=== PATIENT | male | born 1990 | race African-American/Black ===

== ENCOUNTER 2016-05-28 10:29 | Emergency (ER) | payer SELFPAY ==
[2016-05-28] MEDS ORDERED: KETOROLAC 30 MG/ML VIAL (J1885) As Ordered ONE (11:10)
[2016-05-28] MEDS ORDERED: ONDANSETRON 4MG/2ML VIAL (J2405) As Ordered ONE (11:10)
[2016-05-28 11:39] LABS: BASO % 1.9 % (0.0-1.0); EOS % 1.1 % (0.0-3.0); LARGE UNSTAINED CELL # 0.1 K/mm3 (0.0-0.4); LARGE UNSTAINED CELL % 3.6 % (0.0-4.0); LYMPH # 0.8 K/mm3 (1.5-6.5); LYMPH % 26.8 % (24.0-44.0); MEAN CORPUSCULAR HEMOGLOBIN 31.5 pg (27.0-33.0); MEAN CORPUSCULAR HGB CONC 33.7 g/dl (32.0-36.5); MEAN CORPUSCULAR VOLUME 93.4 fl (80.0-96.0); MONO # 0.2 K/mm3 (0.0-0.8); MONO % 7.2 % (0.0-5.0); NEUTROPHILS # 1.6 K/mm3 (1.8-7.7); NEUTROPHILS % 59.5 % (36.0-66.0); RED CELL DISTRIBUTION WIDTH 13.4 % (11.5-14.5); WHITE BLOOD COUNT 2.6 K/mm3 (4.0-10.0)
[2016-05-28 12:02] LABS: ALBUMIN 3.9 GM/DL (3.2-5.2); ALBUMIN/GLOBULIN RATIO 0.98 (1.00-1.93); ALKALINE PHOSPHATASE 63 U/L (45-117); ALT/SGPT 21 U/L (12-78); ANION GAP 7 MEQ/L (8-16); AST/SGOT 33 U/L (15-37); BILIRUBIN,DIRECT < 0.1 MG/DL (0.0-0.2); BILIRUBIN,TOTAL 0.3 MG/DL (0.2-1.0); BLOOD UREA NITROGEN 20 MG/DL (7-18); CALCIUM LEVEL 8.4 MG/DL (8.5-10.1); CARBON DIOXIDE LEVEL 26 MEQ/L (21-32); CHLORIDE LEVEL 106 MEQ/L (98-107); GLOMERULAR FILTRATION RATE > 60.0 (>60); GLUCOSE, FASTING 87 MG/DL (70-105); POTASSIUM SERUM 4.1 MEQ/L (3.5-5.1); SODIUM LEVEL 139 MEQ/L (136-145); TOTAL PROTEIN 7.9 GM/DL (6.4-8.2)
[2016-05-28 12:15] LABS: PLATELET COUNT, AUTOMATED 92 k/mm3 (150-450)
--- NOTE | 2016-05-28 13:03 | EDDOCDS ---
Physician Documentation [facility] Name: Jm Khalil Age: 25 yrs Sex: Male : 1990 Arrival Date: 05/28/2016 Time: 10:29 Bed I5 / M5 Private MD: No Pcp Disposition: 05/28/16 12:43 Discharged to Home/Self Care. Impression: Nausea with vomiting, unspecified, Chills (without fever). - Condition is Stable. - Discharge Instructions: Nausea and Vomiting. - Prescriptions for ZOFRAN ODT 4 mg - dissolve 1 tablet by ORAL route 4 times per day As needed do not chew, do not swallow whole; 10 tablet. - Medication Reconciliation, Local Pharmacy Hours, Work Release Form - 2 day form. - Follow up: Emergency Department; When: As needed; Reason: Worsening of conditions. [facility]; When: Call to arrange an appointment; Reason: Recheck today's complaints, Continuance of care, To establish care. - Problem is new. - Symptoms have improved. Historical: - Allergies: Celexa (Rash); - Home Meds: 1. Mucinex 600 mg oral Ta12 (Last dose: 05/27/2016) - PMHx: none; - PSHx: none; - Social history: Smoking status: Patient uses tobacco products, current every day smoker. No barriers to communication noted, The patient speaks fluent Kyrgyz. - Family history: Not pertinent. - : The pt / caregiver states he / she is not on anticoagulants. Home medication list is obtained from the patient. - Exposure Risk Screening:: None identified. Vital Signs: 05/28 10:31 BP 117 / 73; Pulse 98; Resp 16; Temp 97.5(O); Pulse Ox 97% on R/A; Weight 65.77 kg / elp 145 lbs (R); Height 5 ft. 7 in. (170.18 cm) (R); Pain 4/10; 12:35 BP 129 / 70 LA Supine (auto/reg); Pulse 70; Resp 20; Temp 97.9(O); Pulse Ox 98% on R/A; bnb Pain 2/10; 10:31 Body Mass Index 22.71 (65.77 kg, 170.18 cm) elp MDM: 10:57 NS 0.9% 1000 ml IV at bolus once ordered. dt4 10:57 Ondansetron 4 mg IVP once ordered. dt4 10:57 ketorolac 30 mg IVP once ordered. dt4 10:57 IV Saline Lock ordered. dt4 10:57 Strep Screen, Nursing ordered. dt4 10:57 Basic Metabolic Profile Ordered. EDMS 10:57 CBC with Diff Ordered. EDMS 10:57 Lipase Ordered. EDMS 10:57 Liver Profile Ordered. EDMS 10:57 Urinalysis Ordered. EDMS 11:08 GATS (NEGATIVE STREP SCREEN) Ordered. EDMS 12:03 Financial registration complete. lg 12:17 [facility] Payment Agreement was scanned into [employer] and attached to record. lg Administered Medications: 11:23 Drug: NS 0.9% 1000 ml [sodium chloride 0.9 % intravenous solution] Route: IV; Rate: ttb bolus; Site: left antecubital; 13:01 Follow up: Response: Nausea is resolved; No Adverse Reaction; Pain is decreased; IV ttb Status: Completed infusion; IV Intake: 1000ml 11:23 Drug: Ondansetron 4 mg [ondansetron HCl 2 mg/mL intravenous solution (2 mL)] Route: ttb IVP; Site: left antecubital; 11:23 Drug: ketorolac 30 mg [ketorolac 30 mg/mL (1 mL) injection solution (1 mL)] Route: IVP; ttb Site: left antecubital; Signatures: [facility] Danae Mayen, Rey Reg lg Yamileth De La Torre RN RN jjr Conner, Teresa, RN RN ttb Myrna Montes De Oca PA-C PA-C dt4 The chart was reviewed and I authenticate all verbal orders and agree with the evaluation and treatment provided.Attachments: 12:17 [facility] Payment Agreement lg MTDD
--- NOTE | 2016-05-28 13:04 | EDDOCDS ---
Nurse's Notes [facility] Name: Jm Khalil Age: 25 yrs Sex: Male : 1990 Arrival Date: 05/28/2016 Time: 10:29 Bed I5 / M5 Private MD: No Pcp Diagnosis: Nausea with vomiting, unspecified;Chills (without fever) Presentation: 05/28 10:33 Presenting complaint: Patient states: N/V for 3 days with chills, reports body aches. jjr Adult Sepsis Screening: The patient does not have new or worsening altered mentation. Patient's respiratory rate is less than 22. Systolic blood pressure is greater than 100. Patient has a qSOFA score of 0- Negative Sepsis Screen. Suicide/Homicide risk assessment- the patient denies having any suicidal and/or homicidal ideations and does not present with any other emotional, behavioral or mental health complaints. Status: Patient is not a service sprinkler helper or dependent. Transition of care: patient was not received from another setting of care. 10:33 Acuity: ALEE Level 3 jjr 10:33 Method Of Arrival: Walkin/Carried/Asstd jjr Triage Assessment: 10:35 General: Appears in no apparent distress. Pain: Location: general malaise. HIV jjr screening NA for this visit Offered previously. GI: Reports nausea, vomiting. Historical: - Allergies: Celexa (Rash); - Home Meds: 1. Mucinex 600 mg oral Ta12 (Last dose: 05/27/2016) - PMHx: none; - PSHx: none; - Social history: Smoking status: Patient uses tobacco products, current every day smoker. No barriers to communication noted, The patient speaks fluent Luxembourgish. - Family history: Not pertinent. - : The pt / caregiver states he / she is not on anticoagulants. Home medication list is obtained from the patient. - Exposure Risk Screening:: None identified. Screenin:25 Screening information is obtained from the patient. Fall risk: No risks identified. ttb Assistance ADL's: requires no assistance with activities of daily living. Abuse/DV Screen: The patient / caregiver reports he/she is: not in a situation that causes fear, pain or injury. Nutritional screening: No deficits noted. Advance Directives: Currently, there is no health care proxy. home support is adequate. Assessment: 11:25 General: Appears in no apparent distress, well nourished, well groomed, Behavior is ttb appropriate for age, cooperative, pleasant. Pain: Location: back of neck. Neurological: Level of Consciousness is awake, alert. Cardiovascular: Heart tones S1 S2 present Chest pain is denied. Respiratory: No deficits noted. Airway is patent Respiratory effort is even, unlabored, Breath sounds are clear bilaterally. Denies cough, shortness of breath. GI: Abdomen is non- distended Bowel sounds present X 4 quads. Abd is soft and non tender X 4 quads. GI: Reports nausea, vomiting. Derm: Skin is normal. Injury Description: No known injury. 12:03 Reassessment: Patient appears in no apparent distress at this time. Patient states ttb feeling better. Patient states symptoms have improved. pt states he is feeling better and inquires about a work note. . 12:59 Reassessment: Patient appears in no apparent distress at this time. Patient denies pain ttb at this time. Patient states feeling better. Patient states symptoms have improved. pt states comfortable going home at this time. . General: Appears in no apparent distress, comfortable, Behavior is appropriate for age, cooperative, pleasant. Pain: Denies pain. Neurological: Level of Consciousness is awake, alert. Cardiovascular: Chest pain is denied. Respiratory: Airway is patent Respiratory effort is even, unlabored, Denies cough, shortness of breath. GI: Denies nausea, vomiting. Vital Signs: 10:31 BP 117 / 73; Pulse 98; Resp 16; Temp 97.5(O); Pulse Ox 97% on R/A; Weight 65.77 kg (R); elp Height 5 ft. 7 in. (170.18 cm) (R); Pain 4/10; 12:35 BP 129 / 70 LA Supine (auto/reg); Pulse 70; Resp 20; Temp 97.9(O); Pulse Ox 98% on R/A; bnb Pain 2/10; 10:31 Body Mass Index 22.71 (65.77 kg, 170.18 cm) elp Vitals: 10:31 Log In Time: May 28, 2016 at 10:30. [facility] ED Course: 10:30 Patient visited by Lacey Sterling PCA. elp 10:30 No Pcp is Private Physician. elp 10:30 Patient moved to Waiting elp 10:32 Patient moved to Pre RCE elp 10:33 Patient visited by Lacey Sterling PCA. elp 10:34 Triage Initiated jjr 10:35 Patient moved to Triage 3 jjr 10:37 Myrna Montes De Oca [facility]. dt4 10:37 Lucie Nails MD is Attending Physician. dt4 10:37 Patient visited by Myrna Montes De Oca PA-C. dt4 11:03 Urinalysis Sent. ct3 11:04 Patient moved to I5 / M5 ct3 11:10 GATS (NEGATIVE STREP SCREEN) Sent. dwg 11:22 Patient visited by Nadiya Jara RN. ttb 11:23 Basic Metabolic Profile Sent. ttb 11:23 CBC with Diff Sent. ttb 11:23 Lipase Sent. ttb 11:23 Liver Profile Sent. ttb 11:25 The patient / caregiver is instructed regarding the plan of care and ED course. Patient ttb has correct armband on for positive identification. 11:25 Inserted peripheral IV: 20gauge IV in left antecubital area and blood collected. ttb Patient tolerated the procedure well. Labs drawn. (by ED staff). Urine collected. Clean catch specimen. 11:28 Patient visited by Nadiya Jara RN. ttb 12:03 Patient visited by Nadiya Jara RN. ttb 12:04 Patient visited by Nadiya Jara RN. ttb 12:17 [facility] Payment Agreement was scanned into [employer] and attached to record. lg 12:36 Patient visited by Carmela Rust PCA. bnb 12:43 [facility] is Referral Physician. dt4 12:59 Discontinued IV lock intact, bleeding controlled, pressure dressing applied, No ttb redness/swelling at site. No procedures done that require assistance. Administered Medications: 11:23 Drug: NS 0.9% 1000 ml [sodium chloride 0.9 % intravenous solution] Route: IV; Rate: ttb bolus; Site: left antecubital; 13:01 Follow up: Response: Nausea is resolved; No Adverse Reaction; Pain is decreased; IV ttb Status: Completed infusion; IV Intake: 1000ml 11:23 Drug: Ondansetron 4 mg [ondansetron HCl 2 mg/mL intravenous solution (2 mL)] Route: ttb IVP; Site: left antecubital; 11:23 Drug: ketorolac 30 mg [ketorolac 30 mg/mL (1 mL) injection solution (1 mL)] Route: IVP; ttb Site: left antecubital; Intake: 13:01 IV: 1000.00ml; Total: 1000.00ml. ttb Order Results: Lab Order: Basic Metabolic Profile; SPEC'M 05/28/16 11:00 Test: GLUCOSE, FASTING; Value: 87; Range: 70-105; Units: MG/DL; Status: F Test: BLOOD UREA NITROGEN; Value: 20; Range: 7-18; Abnormal: Above high normal; Units: MG/DL; Status: F Test: CREATININE FOR GFR; Value: 1.30; Range: 0.70-1.30; Units: MG/DL; Status: F Test: GLOMERULAR FILTRATION RATE; Value: > 60.0; Range: >60; Status: F Test: SODIUM LEVEL; Value: 139; Range: 136-145; Units: MEQ/L; Status: F Test: POTASSIUM SERUM; Value: 4.1; Range: 3.5-5.1; Units: MEQ/L; Status: F Test: CHLORIDE LEVEL; Value: 106; Range: 98-107; Units: MEQ/L; Status: F Test: CARBON DIOXIDE LEVEL; Value: 26; Range: 21-32; Units: MEQ/L; Status: F Test: ANION GAP; Value: 7; Range: 8-16; Abnormal: Below low normal; Units: MEQ/L; Status: F Test: CALCIUM LEVEL; Value: 8.4; Range: 8.5-10.1; Abnormal: Below low normal; Units: MG/DL; Status: F Test Note: ; Units are mL/min/1.73 m2 Chronic Kidney Disease Staging per NKF: Stage I & II GFR >=60 Normal to Mildly Decreased Stage III GFR 30-59 Moderately Decreased Stage IV GFR 15-29 Severely Decreased Stage V GFR <15 Very Little GFR Left ESRD GFR <15 on 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0-36.5; Units: g/dl; Status: F Test: RED CELL DISTRIBUTION WIDTH; Value: 13.4; Range: 11.5-14.5; Units: %; Status: F Test: PLATELET COUNT, AUTOMATED; Value: 92; Range: 150-450; Abnormal: Below low normal; Units: k/mm3; Status: F Test: NEUTROPHILS %; Value: 59.5; Range: 36.0-66.0; Units: %; Status: F Test: LYMPH %; Value: 26.8; Range: 24.0-44.0; Units: %; Status: F Test: MONO %; Value: 7.2; Range: 0.0-5.0; Abnormal: Above high normal; Units: %; Status: F Test: EOS %; Value: 1.1; Range: 0.0-3.0; Units: %; Status: F Test: BASO %; Value: 1.9; Range: 0.0-1.0; Abnormal: Above high normal; Units: %; Status: F Test: LARGE UNSTAINED CELL %; Value: 3.6; Range: 0.0-4.0; Units: %; Status: F Test: NEUTROPHILS #; Value: 1.6; Range: 1.8-7.7; Abnormal: Below low normal; Units: K/mm3; Status: F Test: LYMPH #; Value: 0.8; Range: 1.5-6.5; Abnormal: Below low normal; Units: K/mm3; Status: F Test: MONO #; Value: 0.2; Range: 0.0-0.8; Units: K/mm3; Status: F Test: EOS #; Value: 0.0; Range: 0.0-0.50; Units: K/mm3; Status: F Test: BASO #; Value: 0.0; Range: 0.0-0.2; Units: K/mm3; Status: F Test: LARGE UNSTAINED CELL #; Value: 0.1; Range: 0.0-0.4; Units: K/mm3; Status: F Lab Order: Lipase; SPEC' 05/28/16 11:00 Test: LIPASE; Value: 129; Range: 73-393; Units: U/L; Status: F Lab Order: Liver Profile; [facility]' 05/28/16 11:00 Test: AST/SGOT; Value: 33; Range: 15-37; Units: U/L; Status: F Test: ALT/SGPT; Value: 21; Range: 12-78; Units: U/L; Status: F Test: ALKALINE PHOSPHATASE; Value: 63; Range: 45-117; Units: U/L; Status: F Test: BILIRUBIN,TOTAL; Value: 0.3; Range: 0.2-1.0; Units: MG/DL; Status: F Test: BILIRUBIN,DIRECT; Value: < 0.1; Range: 0.0-0.2; Units: MG/DL; Status: F Test: TOTAL PROTEIN; Value: 7.9; Range: 6.4-8.2; Units: GM/DL; Status: F Test: ALBUMIN; Value: 3.9; Range: 3.2-5.2; Units: GM/DL; Status: F Test: ALBUMIN/GLOBULIN RATIO; Value: 0.98; Range: 1.00-1.93; Abnormal: Below low normal; Status: F Lab Order: Urinalysis; [facility]' 05/28/16 11:03 Test: APPEARANCE, URINE; Value: HAZY; Range: CLEAR; Status: F Test: COLOR, URINE; Value: MAY; Range: YELLOW; Status: F Test: PH,URINE; Value: 6.0; Range: 5.0-9.0; Units: UNITS; Status: F Test: SPECIFIC GRAVITY URINE AUTO; Value: 1.031; Range: 1.002-1.035; Status: F Test: PROTEIN, URINE AUTO; Value: 1+; Range: NEGATIVE; Abnormal: Above high normal; Units: mg/dL; Status: F Test: GLUCOSE, URINE (UA) AUTO; Value: NEGATIVE; Range: NEGATIVE; Units: mg/dL; Status: F Test: KETONE, URINE AUTO; Value: TRACE; Range: NEGATIVE; Abnormal: Above high normal; Units: mg/dL; Status: F Test: UROBILINOGEN, URINE AUTO; Value: 4.0; Range: 0.0-2.0; Abnormal: Above high normal; Units: mg/dL; Status: F Test: BILIRUBIN, URINE AUTO; Value: NEGATIVE; Range: NEGATIVE; Status: F Test: NITRITE, URINE AUTO; Value: NEGATIVE; Range: NEGATIVE; Status: F Test: LEUKOCYTE ESTERASE, URINE AUTO; Value: TRACE; Range: NEGATIVE; Abnormal: Above high normal; Status: F Test: BLOOD, URINE BLOOD; Value: NEGATIVE; Range: NEGATIVE; Status: F Test: WBC, URINE AUTO; Value: 5; Range: 0-3; Abnormal: Above high normal; Units: /HPF; Status: F Test: RBC, URINE AUTO; Value: 1; Range: 0-3; Units: /HPF; Status: F Test: BACTERIA, URINE AUTO; Value: NEGATIVE; Range: NEGATIVE; Status: F Test: SQUAMOUS EPITHELIAL CELL UR AU; Value: 0; Range: 0-6; Units: /HPF; Status: F Test: MUCUS, URINE; Value: SMALL; Range: NEGATIVE; Status: F Test: HYALINE CAST, URINE AUTO; Value: 0; Range: 0-1; Units: /LPF; Status: F Outcome: 12:43 Discharge ordered by Provider. dt4 12:59 Discharge Assessment: Patient awake, alert and oriented x 3. No cognitive and/or ttb functional deficits noted. Patient verbalized understanding of disposition instructions. Patient awake and alert. patient administered narcotics - no. The following High Risk Discharge criteria are identified: None. Discharged to home ambulatory. Condition: good Condition: stable Condition: improved. Discharge instructions given to patient, Instructed on discharge instructions, follow up and referral plans. medication usage, Demonstrated understanding of instructions, medications, Pt was receptive of discharge instructions/ teaching. Prescriptions given X 1. No special radiology studies were completed. Property :Personal belongings accompany Pt. 13:02 Patient left the ED. ttb Signatures: Aristides Morrissey, RN RN Danae Martines, Reg Reg lg Yamileth De La Torre, RN RN Sophy Ibarra, DIRECTOR OF STRATEGIC ALLIANCES DIRECTOR OF STRATEGIC ALLIANCES ct3 Nadiya Jara RN RN ttb Lacey Sterling, DIRECTOR OF STRATEGIC ALLIANCES DIRECTOR OF STRATEGIC ALLIANCES elp Myrna Montes De Oca PAJanet PATanviC dt4 Carmela Rust, DIRECTOR OF STRATEGIC ALLIANCES DIRECTOR OF STRATEGIC ALLIANCES bnb Corrections: (The following items were deleted from the chart) 10:33 10:31 65.77 kg; Height 5 ft. 7 in.; BMI: 22.7; Pain 4/10; elp elp MTDD
--- NOTE | 2016-05-30 14:03 | EDDOCDS ---
Physician Documentation [facility] Name: Jm Khalil Age: 25 yrs Sex: Male : 1990 Arrival Date: 05/28/2016 Time: 10:29 Bed I5 / M5 Private MD: No Pcp Disposition: 05/28/16 12:43 Discharged to Home/Self Care. Impression: Nausea with vomiting, unspecified, Chills (without fever). - Condition is Stable. - Discharge Instructions: Nausea and Vomiting. - Prescriptions for ZOFRAN ODT 4 mg - dissolve 1 tablet by ORAL route 4 times per day As needed do not chew, do not swallow whole; 10 tablet. - Medication Reconciliation, Local Pharmacy Hours, Work Release Form - 2 day form. - Follow up: Emergency Department; When: As needed; Reason: Worsening of conditions. Follow [facility]: [facility]; When: Call to arrange an appointment; Reason: Recheck today's complaints, Continuance of care, To establish care. - Problem is new. - Symptoms have improved. Historical: - Allergies: Celexa (Rash); - Home Meds: 1. Mucinex 600 mg oral Ta12 (Last dose: 05/27/2016) - PMHx: none; - PSHx: none; - Social history: Smoking status: Patient uses tobacco products, current every day smoker. No barriers to communication noted, The patient speaks fluent Indonesian. - Family history: Not pertinent. - : The pt / caregiver states he / she is not on anticoagulants. Home medication list is obtained from the patient. - Exposure Risk Screening:: None identified. Vital Signs: 05/28 10:31 BP 117 / 73; Pulse 98; Resp 16; Temp 97.5(O); Pulse Ox 97% on R/A; Weight 65.77 kg / elp 145 lbs (R); Height 5 ft. 7 in. (170.18 cm) (R); Pain 4/10; 12:35 BP 129 / 70 LA Supine (auto/reg); Pulse 70; Resp 20; Temp 97.9(O); Pulse Ox 98% on R/A; bnb Pain 2/10; 10:31 Body Mass Index 22.71 (65.77 kg, 170.18 cm) elp MDM: 10:57 NS 0.9% 1000 ml IV at bolus once ordered. dt4 10:57 Ondansetron 4 mg IVP once ordered. dt4 10:57 ketorolac 30 mg IVP once ordered. dt4 10:57 IV Saline Lock ordered. dt4 10:57 Strep Screen, Nursing ordered. dt4 10:57 Basic Metabolic Profile Ordered. EDMS 10:57 CBC with Diff Ordered. EDMS 10:57 Lipase Ordered. EDMS 10:57 Liver Profile Ordered. EDMS 10:57 Urinalysis Ordered. EDMS 11:08 GATS (NEGATIVE STREP SCREEN) Ordered. EDMS 12:03 Financial registration complete. lg 12:17 [facility] Payment Agreement was scanned into [employer] and attached to record. lg 17:06 T-Sheet-- Draft Copy was scanned into [employer] and attached to record. klr Administered Medications: 11:23 Drug: NS 0.9% 1000 ml [sodium chloride 0.9 % intravenous solution] Route: IV; Rate: ttb bolus; Site: left antecubital; 13:01 Follow up: Response: Nausea is resolved; No Adverse Reaction; Pain is decreased; IV ttb Status: Completed infusion; IV Intake: 1000ml 11:23 Drug: Ondansetron 4 mg [ondansetron HCl 2 mg/mL intravenous solution (2 mL)] Route: ttb IVP; Site: left antecubital; 11:23 Drug: ketorolac 30 mg [ketorolac 30 mg/mL (1 mL) injection solution (1 mL)] Route: IVP; ttb Site: left antecubital; Signatures: Dispatcher MedHo EDDanae Nation, Rey Reg lg Yamileth De La Torre RN RN jjr Conner, Teresa, RN RN ttb Myrna Montes De Oca PA-C PA-C dt4 Redder, Kathie klr The chart was reviewed and I authenticate all verbal orders and agree with the evaluation and treatment provided.Attachments: 12:17 [facility] Payment Agreement lg 17:06 T-Sheet-- Draft Copy klr Chart Complete MTDD
--- NOTE | 2016-05-30 14:03 | EDDOCDS ---
Physician Documentation Name: Jm Khalil Age: 25 yrs Sex: Male : 1990 Arrival Date: 05/28/2016 Time: 10:29 Bed I5 / M5 Private MD: No Pcp Disposition: 05/28/16 12:43 Discharged to Home/Self Care. Impression: Nausea with vomiting, unspecified, Chills (without fever). - Condition is Stable. - Discharge Instructions: Nausea and Vomiting. - Prescriptions for ZOFRAN ODT 4 mg - dissolve 1 tablet by ORAL route 4 times per day As needed do not chew, do not swallow whole; 10 tablet. - Medication Reconciliation, Local Pharmacy Hours, Work Release Form - 2 day form. - Follow up: Emergency Department; When: As needed; Reason: Worsening of conditions. Follow up: [facility]; When: Call to arrange an appointment; Reason: Recheck today's complaints, Continuance of care, To establish care. - Problem is new. - Symptoms have improved. Historical: - Allergies: Celexa (Rash); - Home Meds: 1. Mucinex 600 mg oral Ta12 (Last dose: 05/27/2016) - PMHx: none; - PSHx: none; - Social history: Smoking status: Patient uses tobacco products, current every day smoker. No barriers to communication noted, The patient speaks fluent Persian. - Family history: Not pertinent. - : The pt / caregiver states he / she is not on anticoagulants. Home medication list is obtained from the patient. - Exposure Risk Screening:: None identified. Vital Signs: 05/28 10:31 BP 117 / 73; Pulse 98; Resp 16; Temp 97.5(O); Pulse Ox 97% on R/A; Weight 65.77 kg / elp 145 lbs (R); Height 5 ft. 7 in. (170.18 cm) (R); Pain 4/10; 12:35 BP 129 / 70 LA Supine (auto/reg); Pulse 70; Resp 20; Temp 97.9(O); Pulse Ox 98% on R/A; bnb Pain 2/10; 10:31 Body Mass Index 22.71 (65.77 kg, 170.18 cm) elp MDM: 10:57 NS 0.9% 1000 ml IV at bolus once ordered. dt4 10:57 Ondansetron 4 mg IVP once ordered. dt4 10:57 ketorolac 30 mg IVP once ordered. dt4 10:57 IV Saline Lock ordered. dt4 10:57 Strep Screen, Nursing ordered. dt4 10:57 Basic Metabolic Profile Ordered. EDMS 10:57 CBC with Diff Ordered. EDMS 10:57 Lipase Ordered. EDMS 10:57 Liver Profile Ordered. EDMS 10:57 Urinalysis Ordered. EDMS 11:08 GATS (NEGATIVE STREP SCREEN) Ordered. EDMS 12:03 Financial registration complete. lg 12:17 [facility] LICENSE OF [facility] Payment Agreement was scanned into [employer] and attached to record. lg 17:06 T-Sheet-- Draft Copy was scanned into [employer] and attached to record. klr Administered Medications: 11:23 Drug: NS 0.9% 1000 ml [sodium chloride 0.9 % intravenous solution] Route: IV; Rate: ttb bolus; Site: left antecubital; 13:01 Follow up: Response: Nausea is resolved; No Adverse Reaction; Pain is decreased; IV ttb Status: Completed infusion; IV Intake: 1000ml 11:23 Drug: Ondansetron 4 mg [ondansetron HCl 2 mg/mL intravenous solution (2 mL)] Route: ttb IVP; Site: left antecubital; 11:23 Drug: ketorolac 30 mg [ketorolac 30 mg/mL (1 mL) injection solution (1 mL)] Route: IVP; ttb Site: left antecubital; Signatures: Dispatcher MedHo EDDanae Nation, Rey Reg lg Yamileth De La Torre RN RN jjr Conner, Teresa, RN RN ttb Myrna Montes De Oca PA-C PA-C dt4 Redder, Kathie klr The chart was reviewed and I authenticate all verbal orders and agree with the evaluation and treatment provided.Attachments: 12:17 ON LICENSE OF [facility] Payment Agreement lg 17:06 T-Sheet-- Draft Copy klr Chart Complete MTDD
--- NOTE | 2016-05-30 14:03 | EDDOCDS ---
Nurse's Notes [facility] Name: Jm Khalil Age: 25 yrs Sex: Male : 1990 Arrival Date: 05/28/2016 Time: 10:29 Bed I5 / M5 Private MD: No Pcp Diagnosis: Nausea with vomiting, unspecified;Chills (without fever) Presentation: 05/28 10:33 Presenting complaint: Patient states: N/V for 3 days with chills, reports body aches. jjr Adult Sepsis Screening: The patient does not have new or worsening altered mentation. Patient's respiratory rate is less than 22. Systolic blood pressure is greater than 100. Patient has a qSOFA score of 0- Negative Sepsis Screen. Suicide/Homicide risk assessment- the patient denies having any suicidal and/or homicidal ideations and does not present with any other emotional, behavioral or mental health complaints. 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 Transition of care: patient was not received from another setting of care. 10:33 Acuity: ALEE Level 3 jjr 10:33 Method Of Arrival: Walkin/Carried/Asstd jjr Triage Assessment: 10:35 General: Appears in no apparent distress. Pain: Location: general malaise. HIV jjr screening NA for this visit Offered previously. GI: Reports nausea, vomiting. Historical: - Allergies: Celexa (Rash); - Home Meds: 1. Mucinex 600 mg oral Ta12 (Last dose: 05/27/2016) - PMHx: none; - PSHx: none; - Social history: Smoking status: Patient uses tobacco products, current every day smoker. No barriers to communication noted, The patient speaks fluent Sinhala. - Family history: Not pertinent. - : The pt / caregiver states he / she is not on anticoagulants. Home medication list is obtained from the patient. - Exposure Risk Screening:: None identified. Screenin:25 Screening information is obtained from the patient. Fall risk: No risks identified. ttb Assistance ADL's: requires no assistance with activities of daily living. Abuse/DV Screen: The patient / caregiver reports he/she is: not in a situation that causes fear, pain or injury. Nutritional screening: No deficits noted. Advance Directives: Currently, there is no health care proxy. home support is adequate. Assessment: 11:25 General: Appears in no apparent distress, well nourished, well groomed, Behavior is ttb appropriate for age, cooperative, pleasant. Pain: Location: back of neck. Neurological: Level of Consciousness is awake, alert. Cardiovascular: Heart tones S1 S2 present Chest pain is denied. Respiratory: No deficits noted. Airway is patent Respiratory effort is even, unlabored, Breath sounds are clear bilaterally. Denies cough, shortness of breath. GI: Abdomen is non- distended Bowel sounds present X 4 quads. Abd is soft and non tender X 4 quads. GI: Reports nausea, vomiting. Derm: Skin is normal. Injury Description: No known injury. 12:03 Reassessment: Patient appears in no apparent distress at this time. Patient states ttb feeling better. Patient states symptoms have improved. pt states he is feeling better and inquires about a work note. . 12:59 Reassessment: Patient appears in no apparent distress at this time. Patient denies pain ttb at this time. Patient states feeling better. Patient states symptoms have improved. pt states comfortable going home at this time. . General: Appears in no apparent distress, comfortable, Behavior is appropriate for age, cooperative, pleasant. Pain: Denies pain. Neurological: Level of Consciousness is awake, alert. Cardiovascular: Chest pain is denied. Respiratory: Airway is patent Respiratory effort is even, unlabored, Denies cough, shortness of breath. GI: Denies nausea, vomiting. Vital Signs: 10:31 BP 117 / 73; Pulse 98; Resp 16; Temp 97.5(O); Pulse Ox 97% on R/A; Weight 65.77 kg (R); elp Height 5 ft. 7 in. (170.18 cm) (R); Pain 4/10; 12:35 BP 129 / 70 LA Supine (auto/reg); Pulse 70; Resp 20; Temp 97.9(O); Pulse Ox 98% on R/A; bnb Pain 2/10; 10:31 Body Mass Index 22.71 (65.77 kg, 170.18 cm) elp Vitals: 10:31 Log In Time: May 28, 2016 at 10:[address] [facility] ED Course: 10:30 Patient visited by Lacey Sterling PCA. elp 10:30 No Pcp is Private Physician. elp 10:30 Patient moved to Waiting elp 10:32 Patient moved to Pre RCE elp 10:33 Patient visited by Lacey Sterling PCA. elp 10:34 Triage Initiated jjr 10:35 Patient moved to Triage 3 jjr 10:37 Myrna Montes De Oca [facility]. dt4 10:37 Lucie Nails MD is Attending Physician. dt4 10:37 Patient visited by Myrna Montes De Oca PA-C. dt4 11:03 Urinalysis Sent. ct3 11:04 Patient moved to I5 / M5 ct3 11:10 GATS (NEGATIVE STREP SCREEN) Sent. dwg 11:22 Patient visited by Nadiya Jara RN. ttb 11:23 Basic Metabolic Profile Sent. ttb 11:23 CBC with Diff Sent. ttb 11:23 Lipase Sent. ttb 11:23 Liver Profile Sent. ttb 11:25 The patient / caregiver is instructed regarding the plan of care and ED course. Patient ttb has correct armband on for positive identification. 11:25 Inserted peripheral IV: 20gauge IV in left antecubital area and blood collected. ttb Patient tolerated the procedure well. Labs drawn. (by ED staff). Urine collected. Clean catch specimen. 11:28 Patient visited by Nadiya Jara RN. ttb 12:03 Patient visited by Nadiya Jara RN. ttb 12:04 Patient visited by Nadiya Jara RN. ttb 12:17 [facility] Payment Agreement was scanned into [employer] and attached to record. lg 12:36 Patient visited by Carmela Rust PCA. bnb 12:43 [facility] is Referral Physician. dt4 12:59 Discontinued IV lock intact, bleeding controlled, pressure dressing applied, No ttb redness/swelling at site. No procedures done that require assistance. 17:06 T-Sheet-- Draft Copy was scanned into [employer] and attached to record. klr Administered Medications: 11:23 Drug: NS 0.9% 1000 ml [sodium chloride 0.9 % intravenous solution] Route: IV; Rate: ttb bolus; Site: left antecubital; 13:01 Follow up: Response: Nausea is resolved; No Adverse Reaction; Pain is decreased; IV ttb Status: Completed infusion; IV Intake: 1000ml 11:23 Drug: Ondansetron 4 mg [ondansetron HCl 2 mg/mL intravenous solution (2 mL)] Route: ttb IVP; Site: left antecubital; 11:23 Drug: ketorolac 30 mg [ketorolac 30 mg/mL (1 mL) injection solution (1 mL)] Route: IVP; ttb Site: left antecubital; Intake: 13:01 IV: 1000.00ml; Total: 1000.00ml. ttb Order Results: Lab Order: Basic Metabolic Profile; SPEC'M 05/28/16 11:00 Test: GLUCOSE, FASTING; Value: 87; Range: 70-105; Units: MG/DL; Status: F Test: BLOOD UREA NITROGEN; Value: 20; Range: 7-18; Abnormal: Above high normal; Units: MG/DL; Status: F Test: CREATININE FOR GFR; Value: 1.30; Range: 0.70-1.30; Units: MG/DL; Status: F Test: GLOMERULAR FILTRATION RATE; Value: > 60.0; Range: >60; Status: F Test: SODIUM LEVEL; Value: 139; Range: 136-145; Units: MEQ/L; Status: F Test: POTASSIUM SERUM; Value: 4.1; Range: 3.5-5.1; Units: MEQ/L; Status: F Test: CHLORIDE LEVEL; Value: 106; Range: 98-107; Units: MEQ/L; Status: F Test: CARBON DIOXIDE LEVEL; Value: 26; Range: 21-32; Units: MEQ/L; Status: F Test: ANION GAP; Value: 7; Range: 8-16; Abnormal: Below low normal; Units: MEQ/L; Status: F Test: CALCIUM LEVEL; Value: 8.4; Range: 8.5-10.1; Abnormal: Below low normal; Units: MG/DL; Status: F Test Note: ; Units are mL/min/1.73 m2 Chronic Kidney Disease Staging per NKF: Stage I & II GFR >=60 Normal to Mildly Decreased Stage III GFR 30-59 Moderately Decreased Stage IV GFR 15-29 Severely Decreased Stage V GFR <15 Very Little GFR Left ESRD GFR <15 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0-36.5; Units: g/dl; Status: F Test: RED CELL DISTRIBUTION WIDTH; Value: 13.4; Range: 11.5-14.5; Units: %; Status: F Test: PLATELET COUNT, AUTOMATED; Value: 92; Range: 150-450; Abnormal: Below low normal; Units: k/mm3; Status: F Test: NEUTROPHILS %; Value: 59.5; Range: 36.0-66.0; Units: %; Status: F Test: LYMPH %; Value: 26.8; Range: 24.0-44.0; Units: %; Status: F Test: MONO %; Value: 7.2; Range: 0.0-5.0; Abnormal: Above high normal; Units: %; Status: F Test: EOS %; Value: 1.1; Range: 0.0-3.0; Units: %; Status: F Test: BASO %; Value: 1.9; Range: 0.0-1.0; Abnormal: Above high normal; Units: %; Status: F Test: LARGE UNSTAINED CELL %; Value: 3.6; Range: 0.0-4.0; Units: %; Status: F Test: NEUTROPHILS #; Value: 1.6; Range: 1.8-7.7; Abnormal: Below low normal; Units: K/mm3; Status: F Test: LYMPH #; Value: 0.8; Range: 1.5-6.5; Abnormal: Below low normal; Units: K/mm3; Status: F Test: MONO #; Value: 0.2; Range: 0.0-0.8; Units: K/mm3; Status: F Test: EOS #; Value: 0.0; Range: 0.0-0.50; Units: K/mm3; Status: F Test: BASO #; Value: 0.0; Range: 0.0-0.2; Units: K/mm3; Status: F Test: LARGE UNSTAINED CELL #; Value: 0.1; Range: 0.0-0.4; Units: K/mm3; Status: F Lab Order: Lipase; [facility]' 05/28/16 11:00 Test: LIPASE; Value: 129; Range: 73-393; Units: U/L; Status: F Lab Order: Liver Profile; [facility]' 05/28/16 11:00 Test: AST/SGOT; Value: 33; Range: 15-37; Units: U/L; Status: F Test: ALT/SGPT; Value: 21; Range: 12-78; Units: U/L; Status: F Test: ALKALINE PHOSPHATASE; Value: 63; Range: 45-117; Units: U/L; Status: F Test: BILIRUBIN,TOTAL; Value: 0.3; Range: 0.2-1.0; Units: MG/DL; Status: F Test: BILIRUBIN,DIRECT; Value: < 0.1; Range: 0.0-0.2; Units: MG/DL; Status: F Test: TOTAL PROTEIN; Value: 7.9; Range: 6.4-8.2; Units: GM/DL; Status: F Test: ALBUMIN; Value: 3.9; Range: 3.2-5.2; Units: GM/DL; Status: F Test: ALBUMIN/GLOBULIN RATIO; Value: 0.98; Range: 1.00-1.93; Abnormal: Below low normal; Status: F Lab Order: Urinalysis; [facility]' 05/28/16 11:03 Test: APPEARANCE, URINE; Value: HAZY; Range: CLEAR; Status: F Test: COLOR, URINE; Value: MAY; Range: YELLOW; Status: F Test: PH,URINE; Value: 6.0; Range: 5.0-9.0; Units: UNITS; Status: F Test: SPECIFIC GRAVITY URINE AUTO; Value: 1.031; Range: 1.002-1.035; Status: F Test: PROTEIN, URINE AUTO; Value: 1+; Range: NEGATIVE; Abnormal: Above high normal; Units: mg/dL; Status: F Test: GLUCOSE, URINE (UA) AUTO; Value: NEGATIVE; Range: NEGATIVE; Units: mg/dL; Status: F Test: KETONE, URINE AUTO; Value: TRACE; Range: NEGATIVE; Abnormal: Above high normal; Units: mg/dL; Status: F Test: UROBILINOGEN, URINE AUTO; Value: 4.0; Range: 0.0-2.0; Abnormal: Above high normal; Units: mg/dL; Status: F Test: BILIRUBIN, URINE AUTO; Value: NEGATIVE; Range: NEGATIVE; Status: F Test: NITRITE, URINE AUTO; Value: NEGATIVE; Range: NEGATIVE; Status: F Test: LEUKOCYTE ESTERASE, URINE AUTO; Value: TRACE; Range: NEGATIVE; Abnormal: Above high normal; Status: F Test: BLOOD, URINE BLOOD; Value: NEGATIVE; Range: NEGATIVE; Status: F Test: WBC, URINE AUTO; Value: 5; Range: 0-3; Abnormal: Above high normal; Units: /HPF; Status: F Test: RBC, URINE AUTO; Value: 1; Range: 0-3; Units: /HPF; Status: F Test: BACTERIA, URINE AUTO; Value: NEGATIVE; Range: NEGATIVE; Status: F Test: SQUAMOUS EPITHELIAL CELL UR AU; Value: 0; Range: 0-6; Units: /HPF; Status: F Test: MUCUS, URINE; Value: SMALL; Range: NEGATIVE; Status: F Test: HYALINE CAST, URINE AUTO; Value: 0; Range: 0-1; Units: /LPF; Status: F Lab Order: GATS (NEGATIVE STREP SCREEN); SPEC'M 05/28/16 11:00 Test: GATS CULTURE (NEG STREP SCR); Value: GATS RESULT NEGATIVE FOR STREP PYOGENES (GROUP A); Status: F Test: GATS CULTURE (NEG STREP SCR); Value: <EXTERNAL COMMENT eCWMed> FULL REPORT IN LAB NOTES (eCW and Medent).; Status: F Outcome: 12:43 Discharge ordered by Provider. dt4 12:59 Discharge Assessment: Patient awake, alert and oriented x 3. No cognitive and/or ttb functional deficits noted. Patient verbalized understanding of disposition instructions. Patient awake and alert. patient administered narcotics - no. The following High Risk Discharge criteria are identified: None. Discharged to home ambulatory. Condition: good Condition: stable Condition: improved. Discharge instructions given to patient, Instructed on discharge instructions, follow up and referral plans. medication usage, Demonstrated understanding of instructions, medications, Pt was receptive of discharge instructions/ teaching. Prescriptions given X 1. No special radiology studies were completed. Property :Personal belongings accompany Pt. 13:02 Patient left the ED. ttb Signatures: Aristides Morrissey, RN RN Danae Martines, Rey Reg lg Yamileth De La Torre, RN RN Sophy Ibarra, BOBBIN WASHER BOBBIN WASHER ct3 Nadiya Jara, LOUISE RN ttb Lacey Sterling, BOBBIN WASHER BOBBIN WASHER elp Myrna Montes De Oca, PA-C PA-C dt4 Freida De La Torre Brittney, BOBBIN WASHER BOBBIN WASHER bnb Corrections: (The following items were deleted from the chart) 10:33 10:31 65.77 kg; Height 5 ft. 7 in.; BMI: 22.7; Pain 4/10; elp elp Chart Complete MTDD
== END 2016-05-28 13:02 | disposition home or self-care (01) ==
LOC: M ED 10:29
DX: R11.2 Nausea with vomiting, unspecified (principal); F17.200 Nicotine dependence, unspecified, uncomplicated; Z88.8 Allergy status to other drugs, medicaments and biological substances
CPT/HCPCS: 36415; 80048; 80076; 81001; 83690; 85025; 96361; 96374; 96375; 99284; J1885; J2405

== ENCOUNTER → 2016-11-08 | Outpatient (REF) | payer OTHER ==
[~2016-11-08] MED LIST: CYCL10TA PO; TRIU1TAB; ZOFR4TAB3 PO
[2016-11-08 14:38] LABS: CHOLESTEROL LEVEL 127 MG/DL (<200); TRIGLYCERIDES LEVEL 74 MG/DL (<150)
[2016-11-09 11:26] LABS: HEPATITIS B SURFACE ANTIBODY NEGATIVE (POSITIVE)
[2016-11-15 00:11] LABS: %CD3+CD4+CD8+ 0.9 % (Not Estab.); %CD3+CD4+CD8- 23.4 % (Not Estab.); %CD3+CD4-CD8+ 54.6 % (Not Estab.); %CD3+CD4-CD8- 2.4 % (Not Estab.); ABS CD3+CD4+CD8+ 14 /uL (Not Estab.); ABS CD3+CD4+CD8- 351 /uL (Not Estab.); ABS CD3+CD4-CD8+ 819 /uL (Not Estab.); ABS CD3+CD4-CD8- 36 /uL (Not Estab.); CD4/CD8 NYSDOH RATIO 0.43 (Not Estab.); Eosinophils 3 % (.); HCT 42.1 % (37.5-51.0); HGB 14.8 g/dL (12.6-17.7); HLA B5701-1 Negative (.); Monocytes 11 % (.); Neutrophils 56 % (.); WBC 4.9 x10E3/uL (3.4-10.8)
== END ==
LOC: M SFHCPLAZ 10:36
PROVIDERS: ATTEND Internal Medicine Infectious Disease
DX: B20 Human immunodeficiency virus [HIV] disease (principal)

== ENCOUNTER → 2016-11-24 | Outpatient (REF) | payer OTHER ==
[2016-12-05 08:01] LABS: HIV GenoSure PRIme(R) SEE SEPARATE REPORT; HIV GenoSure PRIme(R) Interp SEE SEPARATE REPORT
[2016-12-05 08:02] LABS: HIV GenoSure PRIme(R) PDF SEE SEPARATE REPORT
== END ==
LOC: M SFHCPLAZ 10:02
PROVIDERS: ATTEND Internal Medicine Infectious Disease
DX: B20 Human immunodeficiency virus [HIV] disease (principal)

== ENCOUNTER 2017-02-27 13:55 | Emergency (ER) | payer MEDICAID, OTHER, SELFPAY ==
[~2017-02-27] VITALS: Ht 170.2 cm; Wt 68.2 kg
[2017-02-27 13:55] VITALS: BP 129/83
[2017-02-27] MEDS ORDERED: TRIU1TAB (14:07)
[2017-02-27] MEDS ORDERED: CYCL10TA PO (15:45)
[2017-02-27] MEDS ORDERED: ZOFR4TAB3 PO (15:45)
== END 2017-02-27 15:56 | disposition home or self-care (01) ==
LOC: M ED 13:55
DX: K52.9 Noninfective gastroenteritis and colitis, unspecified (principal); M54.5 Low back pain; Z72.0 Tobacco use

== ENCOUNTER → 2017-04-06 | Outpatient (REF) | payer OTHER ==
[2017-04-06 16:45] LABS: ALBUMIN 4.3 GM/DL (3.2-5.2); ALKALINE PHOSPHATASE 62 U/L (45-117); ALT/SGPT 15 U/L (12-78); ANION GAP 9 MEQ/L (8-16); AST/SGOT 20 U/L (7-37); BILIRUBIN,TOTAL 0.4 MG/DL (0.2-1.0); BLOOD UREA NITROGEN 18 MG/DL (7-18); CALCIUM LEVEL 9.1 MG/DL (8.5-10.1); CARBON DIOXIDE LEVEL 26 MEQ/L (21-32); CHLORIDE LEVEL 105 MEQ/L (98-107); CREATININE FOR GFR 1.15 MG/DL (0.70-1.30); GLOMERULAR FILTRATION RATE > 60.0 (>60); GLUCOSE, FASTING 76 MG/DL (70-105); POTASSIUM SERUM 4.1 MEQ/L (3.5-5.1); SODIUM LEVEL 140 MEQ/L (136-145); TOTAL PROTEIN 8.2 GM/DL (6.4-8.2)
[2017-04-12 14:15] LABS: Eosinophils 2 % (Not Estab.); HCT 45.5 % (37.5-51.0); HGB 15.1 g/dL (13.0-17.7); Monocytes 8 % (Not Estab.); Neutrophils 62 % (Not Estab.); WBC 5.9 x10E3/uL (3.4-10.8)
== END ==
LOC: M SFHCPLAZ 13:08
PROVIDERS: ATTEND Internal Medicine Infectious Disease
DX: B20 Human immunodeficiency virus [HIV] disease (principal)

== ENCOUNTER 2017-04-18 11:19 | Emergency (ER) | payer OTHER ==
[~2017-04-18] VITALS: Ht 170.2 cm; Wt 65.9 kg
[2017-04-18 11:19] VITALS: BP 105/61
[2017-04-18] MEDS ORDERED: BICILLIN L-A 2,400,000 UNIT/4 ML SYRINGE (J0561-24)PENICILLIN G BENZATINE IM ONE (13:45)
== END 2017-04-18 14:10 | disposition left against medical advice (07) ==
LOC: M ED 11:19
DX: A53.9 Syphilis, unspecified (principal); B20 Human immunodeficiency virus [HIV] disease; F31.9 Bipolar disorder, unspecified; Z79.899 Other long term (current) drug therapy; Z88.8 Allergy status to other drugs, medicaments and biological substances; F12.20 Cannabis dependence, uncomplicated

== ENCOUNTER 2017-04-18 22:34 | Emergency (ER) | payer OTHER ==
[~2017-04-18] VITALS: Ht 170.2 cm; Wt 68.2 kg
[2017-04-18] MEDS ORDERED: BICILLIN L-A 2,400,000 UNIT/4 ML SYRINGE (J0561-24)PENICILLIN G BENZATINE IM ONE (23:30)
[2017-04-19 00:26] VITALS: BP 120/78
== END 2017-04-19 00:54 | disposition home or self-care (01) ==
LOC: M ED 22:34
DX: A51.0 Primary genital syphilis (principal); B20 Human immunodeficiency virus [HIV] disease; F33.9 Major depressive disorder, recurrent, unspecified; F43.10 Post-traumatic stress disorder, unspecified; Z79.899 Other long term (current) drug therapy; Z88.8 Allergy status to other drugs, medicaments and biological substances; F17.210 Nicotine dependence, cigarettes, uncomplicated
CPT/HCPCS: 96372; 99283; J0561

== ENCOUNTER 2017-05-16 22:19 | Emergency (ER) | payer OTHER ==
[2017-05-17] MEDS ORDERED: LIDOCAINE W/EPINEPHRINE 1% 20ML VIAL As Ordered (00:02)
== END 2017-05-17 01:35 | disposition home or self-care (01) ==
LOC: M ED 22:19
DX: S01.111A Laceration without foreign body of right eyelid and periocular area, initial encounter (principal); S00.93XA Contusion of unspecified part of head, initial encounter; W18.00XA Striking against unspecified object with subsequent fall, initial encounter; Y92.410 Unspecified street and highway as the place of occurrence of the external cause; B20 Human immunodeficiency virus [HIV] disease; F43.10 Post-traumatic stress disorder, unspecified; F41.9 Anxiety disorder, unspecified; F33.9 Major depressive disorder, recurrent, unspecified; F17.210 Nicotine dependence, cigarettes, uncomplicated; Z79.899 Other long term (current) drug therapy; Z88.8 Allergy status to other drugs, medicaments and biological substances
CPT/HCPCS: 70450

== ENCOUNTER 2017-05-19 16:46 | Emergency (ER) | payer OTHER | END 2017-05-19 18:43 | disposition home or self-care (01) | LOC: M ED 16:46 | DX: S06.0X0D Concussion without loss of consciousness, subsequent encounter (principal); Y08.02XD Assault by strike by baseball bat, subsequent encounter; Y92.410 Unspecified street and highway as the place of occurrence of the external cause; B20 Human immunodeficiency virus [HIV] disease; Z79.899 Other long term (current) drug therapy; Z88.8 Allergy status to other drugs, medicaments and biological substances; F17.210 Nicotine dependence, cigarettes, uncomplicated | CPT/HCPCS: 99283 ==

== ENCOUNTER 2017-05-23 15:40 | Emergency (ER) | payer OTHER | END 2017-05-23 16:21 | disposition home or self-care (01) | LOC: M ED 15:40 | DX: Z48.02 Encounter for removal of sutures (principal); B20 Human immunodeficiency virus [HIV] disease; Z79.899 Other long term (current) drug therapy; Z88.8 Allergy status to other drugs, medicaments and biological substances | CPT/HCPCS: 99282 ==

== ENCOUNTER → 2017-07-11 | Outpatient (REF) | payer OTHER ==
[2017-07-11 11:51] LABS: ALBUMIN 3.9 GM/DL (3.2-5.2); ALBUMIN/GLOBULIN RATIO 1.11 (1.00-1.93); ALKALINE PHOSPHATASE 82 U/L (45-117); ALT/SGPT 23 U/L (12-78); ANION GAP 10 MEQ/L (8-16); AST/SGOT 18 U/L (7-37); BILIRUBIN,TOTAL 0.4 MG/DL (0.2-1.0); BLOOD UREA NITROGEN 14 MG/DL (7-18); CARBON DIOXIDE LEVEL 25 MEQ/L (21-32); CHLORIDE LEVEL 105 MEQ/L (98-107); CREATININE FOR GFR 1.34 MG/DL (0.70-1.30); GLOMERULAR FILTRATION RATE > 60.0 (>60); GLUCOSE, FASTING 112 MG/DL (70-100); POTASSIUM SERUM 3.6 MEQ/L (3.5-5.1); SODIUM LEVEL 140 MEQ/L (136-145); TOTAL PROTEIN 7.4 GM/DL (6.4-8.2)
[2017-07-12 14:16] LABS: %CD4 Pos Lymphs 34.9 % (30.8-58.5); ABS Eosinophils 0.1 x10E3/uL (0.0-0.4); ABS Lymphs 1.5 x10E3/uL (0.7-3.1); ABS Monocytes 0.5 x10E3/uL (0.1-0.9); ABS Neutophils 3.6 x10E3/uL (1.4-7.0); Abs CD4 Helper 524 /uL (359-1519); Abs CD8 Suppres 390 /uL (109-897); CD4/CD8 Ratio 1.34 (0.92-3.72); Eosinophils 2 % (Not Estab.); HCT 41.3 % (37.5-51.0); HGB 14.5 g/dL (13.0-17.7); Immature Grans 0 % (Not Estab.); Lymphocytes 26 % (Not Estab.); MCH 33.5 pg (26.6-33.0); MCHC 35.1 g/dL (31.5-35.7); MCV 95 fL (79-97); Monocytes 8 % (Not Estab.); Neutrophils 64 % (Not Estab.); Platelets 198 x10E3/uL (150-379); RBC 4.33 x10E6/uL (4.14-5.80); RDW 14.5 % (12.3-15.4); WBC 5.7 x10E3/uL (3.4-10.8)
[2017-07-14 00:06] LABS: HIV-1 RNA PCR QUANT 2 LC550285 320 copies/mL (.); HIV-1 RNA PCR QUANT 3 LC550285 2.505 (.)
== END ==
LOC: M SFHCPLAZ 08:43
DX: Z20.2 Contact with and (suspected) exposure to infections with a predominantly sexual mode of transmission (principal); B20 Human immunodeficiency virus [HIV] disease
CPT/HCPCS: 87536

== ENCOUNTER → 2017-09-28 | Outpatient (REF) | payer OTHER ==
[2017-09-28 13:17] LABS: ALBUMIN 3.6 GM/DL (3.2-5.2); ALBUMIN/GLOBULIN RATIO 1.03 (1.00-1.93); ALKALINE PHOSPHATASE 77 U/L (45-117); ALT/SGPT 19 U/L (12-78); ANION GAP 6 MEQ/L (8-16); AST/SGOT 20 U/L (7-37); BILIRUBIN,TOTAL 0.2 MG/DL (0.2-1.0); BLOOD UREA NITROGEN 14 MG/DL (7-18); CALCIUM LEVEL 8.6 MG/DL (8.5-10.1); CARBON DIOXIDE LEVEL 26 MEQ/L (21-32); CHLORIDE LEVEL 110 MEQ/L (98-107); CREATININE FOR GFR 1.13 MG/DL (0.70-1.30); GLOMERULAR FILTRATION RATE > 60.0 (>60); GLUCOSE, FASTING 88 MG/DL (70-100); POTASSIUM SERUM 4.3 MEQ/L (3.5-5.1); SODIUM LEVEL 142 MEQ/L (136-145); TOTAL PROTEIN 7.1 GM/DL (6.4-8.2)
[2017-09-29 14:17] LABS: % CD8 Pos Lymph 31.7 % (12.0-35.5); %CD4 Pos Lymphs 37.7 % (30.8-58.5); ABS Eosinophils 0.2 x10E3/uL (0.0-0.4); ABS Lymphs 1.5 x10E3/uL (0.7-3.1); ABS Monocytes 0.6 x10E3/uL (0.1-0.9); ABS Neutophils 6.3 x10E3/uL (1.4-7.0); Abs CD4 Helper 566 /uL (359-1519); Abs CD8 Suppres 476 /uL (109-897); CD4/CD8 Ratio 1.19 (0.92-3.72); Eosinophils 2 % (Not Estab.); HCT 41.4 % (37.5-51.0); HGB 14.5 g/dL (13.0-17.7); Immature Grans 0 % (Not Estab.); Lymphocytes 17 % (Not Estab.); MCH 32.9 pg (26.6-33.0); MCV 94 fL (79-97); Monocytes 7 % (Not Estab.); Neutrophils 73 % (Not Estab.); Platelets 244 x10E3/uL (150-379); RBC 4.41 x10E6/uL (4.14-5.80); RDW 14.2 % (12.3-15.4); WBC 8.6 x10E3/uL (3.4-10.8)
[2017-10-02 14:13] LABS: HIV-1 RNA PCR QUANT 2 LC550285 <20 copies/mL (.)
== END ==
LOC: M SFHCPLAZ 09:07
DX: B20 Human immunodeficiency virus [HIV] disease (principal)

== ENCOUNTER 2017-10-15 11:54 | Emergency (ER) | payer OTHER ==
[2017-10-15] MEDS: PERCOCET 5MG/325MG TAB PO (12:01)
== END 2017-10-15 12:49 | disposition home or self-care (01) ==
LOC: M ED 11:54
DX: S83.8X2A Sprain of other specified parts of left knee, initial encounter (principal); X58.XXXA Exposure to other specified factors, initial encounter; Y92.89 Other specified places as the place of occurrence of the external cause; Y93.61 Activity, american tackle football; Z79.899 Other long term (current) drug therapy; Z88.8 Allergy status to other drugs, medicaments and biological substances; Z21 Asymptomatic human immunodeficiency virus [HIV] infection status
CPT/HCPCS: 73564

== ENCOUNTER → 2017-12-06 | Outpatient (CLI) | payer MEDICAID | LOC: M OUTALCOH 14:05 | DX: Z13.9 Encounter for screening, unspecified (principal); F12.20 Cannabis dependence, uncomplicated ==

== ENCOUNTER 2018-01-02 16:00 | Outpatient (RCR) | payer MEDICAID | END 2018-01-28 | LOC: M OUTALCOH 01-03 15:00 | DX: F12.20 Cannabis dependence, uncomplicated (principal); F17.200 Nicotine dependence, unspecified, uncomplicated ==

== ENCOUNTER → 2018-01-05 | Outpatient (REF) | payer MEDICAID ==
[2018-01-05 17:08] LABS: TOTAL 25(OH) VITAMIN D 43.2 NG/ML (30.0-100.0)
[2018-01-05 17:32] LABS: BASO % 0.5 % (0.0-1.0); EOS # 0.4 10^3/uL (0.0-0.50); EOS % 5.1 % (0.0-3.0); HEMATOCRIT 41.8 % (42.0-52.0); HEMOGLOBIN 14.9 g/dl (13.5-17.5); IMMATURE GRANULOCYTE % 0.2 % (0-3.0); LYMPH # 2.2 10^3/uL (1.5-6.5); LYMPH % 27.1 % (24.0-44.0); MEAN CORPUSCULAR HGB CONC 35.6 g/dl (32.0-36.5); MEAN CORPUSCULAR VOLUME 95.4 fl (80.0-96.0); MONO # 0.6 10^3/uL (0.0-0.8); MONO % 6.8 % (0.0-5.0); NEUTROPHILS % 60.3 % (36.0-66.0); PLATELET COUNT, AUTOMATED 176 10^3/uL (150-450); RED BLOOD COUNT 4.38 10^6/uL (4.30-6.10); RED CELL DISTRIBUTION WIDTH 14.2 % (11.5-14.5); WHITE BLOOD COUNT 8.3 10^3/uL (4.0-10.0)
== END ==
LOC: M LABDRAWP 12:55
DX: F43.10 Post-traumatic stress disorder, unspecified (principal)
CPT/HCPCS: 84443

== ENCOUNTER → 2020-06-03 | Outpatient (CLI) | payer MEDICAID ==
[~2020-06-03] MED LIST changes: +CYCL-707 PO; -CYCL10TA PO; +IBUP-1022 PO; +KEFL500C17 PO; +TRAM50TA2 PO; +ZOFR4TAB14 PO; -ZOFR4TAB3 PO
== END ==
LOC: M OUTALCOH 08:26
PROVIDERS: ATTEND Psychiatry & Neurology Psychiatry
DX: Z03.89 Encounter for observation for other suspected diseases and conditions ruled out (principal)

== ENCOUNTER → 2020-06-08 | Outpatient (REF) | payer MEDICAID ==
[2020-06-08 16:11] LABS: APPEARANCE, URINE CLEAR (CLEAR); BACTERIA, URINE AUTO NEGATIVE (NEGATIVE); BILIRUBIN, URINE AUTO NEGATIVE (NEGATIVE); BLOOD, URINE BLOOD NEGATIVE (NEGATIVE); COLOR, URINE YELLOW (YELLOW); GLUCOSE, URINE (UA) AUTO NEGATIVE (NEGATIVE); KETONE, URINE AUTO NEGATIVE (NEGATIVE); LEUKOCYTE ESTERASE, URINE AUTO NEGATIVE (NEGATIVE); NITRITE, URINE AUTO NEGATIVE (NEGATIVE); PROTEIN, URINE AUTO NEGATIVE (NEGATIVE); RBC, URINE AUTO 0 /HPF (0-3); SPECIFIC GRAVITY URINE AUTO 1.013 (1.002-1.035); SQUAMOUS EPITHELIAL CELL UR AU 0 /HPF (0-6); UROBILINOGEN, URINE AUTO 0.2 mg/dL (0.0-2.0); WBC, URINE AUTO 7 /HPF (0-3)
[2020-06-08 16:41] LABS: BLOOD UREA NITROGEN 9 MG/DL (7-18); CREATININE FOR GFR 1.14 MG/DL (0.70-1.30); GLUCOSE, FASTING 91 MG/DL (70-100)
[2020-06-08 16:42] LABS: ALBUMIN 3.8 GM/DL (3.2-5.2); ALT/SGPT 39 U/L (12-78); BILIRUBIN,TOTAL 0.2 MG/DL (0.2-1.0); CALCIUM LEVEL 9.5 MG/DL (8.5-10.1); CARBON DIOXIDE LEVEL 34 MEQ/L (21-32); CHLORIDE LEVEL 104 MEQ/L (98-107); GLOMERULAR FILTRATION RATE > 60.0 (>60); POTASSIUM SERUM 5.2 MEQ/L (3.5-5.1); SODIUM LEVEL 140 MEQ/L (136-145); TOTAL PROTEIN 7.5 GM/DL (6.4-8.2)
[2020-06-08 17:28] LABS: HEPATITIS C VIRUS ABY INDEX 0.1 INDEX (<0.8)
[2020-06-08 17:58] LABS: CHLAMYDIA DNA AMPLIFICATION NEGATIVE (NEGATIVE); GC DNA AMPLIFICATION NEGATIVE (NEGATIVE)
[2020-06-11 03:09] LABS: % CD8 Pos Lymph 26.1 % (12.0-35.5); %CD4 Pos Lymphs 45.3 % (30.8-58.5); ABS Basophils 0.1 x10E3/uL (0.0-0.2); ABS Eosinophils 0.2 x10E3/uL (0.0-0.4); ABS Lymphs 1.8 x10E3/uL (0.7-3.1); ABS Monocytes 0.6 x10E3/uL (0.1-0.9); ABS Neutophils 5.8 x10E3/uL (1.4-7.0); Abs CD4 Helper 815 /uL (359-1519); Abs CD8 Suppres 470 /uL (109-897); CD4/CD8 Ratio 1.74 (0.92-3.72); Eosinophils 3 % (Not Estab.); HCT 43.7 % (37.5-51.0); HGB 15.3 g/dL (13.0-17.7); Imm ABS Grans 0.1 x10E3/uL (0.0-0.1); Immature Grans 1 % (Not Estab.); Lymphocytes 21 % (Not Estab.); MCH 35.7 pg (26.6-33.0); MCV 102 fL (79-97); Monocytes 7 % (Not Estab.); Neutrophils 67 % (Not Estab.); Platelets 205 x10E3/uL (150-450); RBC 4.28 x10E6/uL (4.14-5.80); RDW 13.5 % (11.6-15.4); WBC 8.5 x10E3/uL (3.4-10.8)
== END ==
LOC: M SFHCPLAZ 11:15
PROVIDERS: ATTEND Internal Medicine Infectious Disease
DX: B20 Human immunodeficiency virus [HIV] disease (principal); Z11.3 Encounter for screening for infections with a predominantly sexual mode of transmission

== ENCOUNTER 2020-06-11 16:46 | Outpatient (RCR) | payer MEDICAID | END 2020-06-28 | LOC: M OUTALCOH 16:46 | PROVIDERS: ATTEND Psychiatry & Neurology Psychiatry | DX: Z72.0 Tobacco use (principal) ==

== ENCOUNTER → 2020-06-11 | Outpatient (CLI) | payer MEDICAID ==
[2020-06-13 11:07] LABS: HIV-1 RNA ULTRA 1 <20 copies/mL (.)
== END ==
LOC: M LAB 11:44
PROVIDERS: ATTEND Internal Medicine Infectious Disease
DX: Z11.3 Encounter for screening for infections with a predominantly sexual mode of transmission (principal); B20 Human immunodeficiency virus [HIV] disease

== ENCOUNTER → 2020-08-25 | Outpatient (REF) | payer OTHER | LOC: M LAB REF 11:16 | PROVIDERS: ATTEND Surgery | DX: U07.1 COVID-19 (principal) ==

== ENCOUNTER → 2021-10-20 | Outpatient (CLI) | payer MEDICAID ==
[2021-10-20 16:01] LABS: APPEARANCE, URINE CLEAR (CLEAR); BACTERIA, URINE AUTO NEGATIVE (NEGATIVE); BILIRUBIN, URINE AUTO NEGATIVE (NEGATIVE); BLOOD, URINE BLOOD NEGATIVE (NEGATIVE); COLOR, URINE YELLOW (YELLOW); GLUCOSE, URINE (UA) AUTO NEGATIVE (NEGATIVE); KETONE, URINE AUTO NEGATIVE (NEGATIVE); LEUKOCYTE ESTERASE, URINE AUTO NEGATIVE (NEGATIVE); NITRITE, URINE AUTO NEGATIVE (NEGATIVE); PROTEIN, URINE AUTO NEGATIVE (NEGATIVE); RBC, URINE AUTO 1 /HPF (0-3); SPECIFIC GRAVITY URINE AUTO 1.025 (1.002-1.035); SQUAMOUS EPITHELIAL CELL UR AU 0 /HPF (0-6); UROBILINOGEN, URINE AUTO 0.2 mg/dL (0.0-2.0); WBC, URINE AUTO 2 /HPF (0-3)
[2021-10-20 16:23] LABS: ALT/SGPT 52 U/L (12-78); BILIRUBIN,TOTAL 0.5 MG/DL (0.2-1.0); BLOOD UREA NITROGEN 13 MG/DL (7-18); CALCIUM LEVEL 9.7 MG/DL (8.5-10.1); CARBON DIOXIDE LEVEL 27 MEQ/L (21-32); CHLORIDE LEVEL 108 MEQ/L (98-107); CREATININE FOR GFR 1.27 MG/DL (0.70-1.30); GLOMERULAR FILTRATION RATE > 60.0 (>60); GLUCOSE, FASTING 95 MG/DL (70-100); POTASSIUM SERUM 4.5 MEQ/L (3.5-5.1); SODIUM LEVEL 140 MEQ/L (136-145); TOTAL PROTEIN 7.6 GM/DL (6.4-8.2)
[2021-10-20 17:41] LABS: GC DNA AMPLIFICATION NEGATIVE (NEGATIVE)
== END ==
LOC: M PLALAB 10:58
PROVIDERS: ATTEND Internal Medicine Infectious Disease
DX: B20 Human immunodeficiency virus [HIV] disease (principal)

== ENCOUNTER → 2021-12-02 | Outpatient (CLI) | payer MEDICAID | LOC: M OUTALCOH 08:40 | PROVIDERS: ATTEND Psychiatry & Neurology Psychiatry | DX: Z13.39 Encounter for screening examination for other mental health and behavioral disorders (principal) ==

== ENCOUNTER → 2021-12-08 | Outpatient (CLI) | payer MEDICAID | LOC: M SOG 09:35 | PROVIDERS: ATTEND Orthopaedic Surgery Adult Reconstructive Orthopaedic Surgery | DX: M25.562 Pain in left knee (principal) ==

== ENCOUNTER 2021-12-28 16:00 | Outpatient (RCR) | payer MEDICAID | END 2021-12-29 | LOC: M OUTALCOH 16:00 | PROVIDERS: ATTEND Psychiatry & Neurology Psychiatry | DX: F12.20 Cannabis dependence, uncomplicated (principal); Z72.0 Tobacco use ==

== ENCOUNTER 2022-01-26 11:16 | Outpatient (RCR) | payer MEDICAID | END 2022-01-28 | LOC: M OUTALCOH 11:16 | PROVIDERS: ATTEND Psychiatry & Neurology Psychiatry | DX: F12.20 Cannabis dependence, uncomplicated (principal); Z72.0 Tobacco use ==

== ENCOUNTER 2022-02-15 16:00 | Outpatient (RCR) | payer MEDICAID | END 2022-02-28 | LOC: M OUTALCOH 16:00 | PROVIDERS: ATTEND Psychiatry & Neurology Psychiatry | DX: F12.20 Cannabis dependence, uncomplicated (principal); Z72.0 Tobacco use ==

== ENCOUNTER → 2023-01-30 | Outpatient (CLI) | payer MEDICAID ==
[2023-01-30 16:15] LABS: APPEARANCE, URINE CLEAR (CLEAR); BACTERIA, URINE AUTO NEGATIVE (NEGATIVE); BILIRUBIN, URINE AUTO NEGATIVE (NEGATIVE); BLOOD, URINE BLOOD NEGATIVE (NEGATIVE); COLOR, URINE YELLOW (YELLOW); GLUCOSE, URINE (UA) AUTO NEGATIVE (NEGATIVE); KETONE, URINE AUTO NEGATIVE (NEGATIVE); LEUKOCYTE ESTERASE, URINE AUTO NEGATIVE (NEGATIVE); MUCUS, URINE SMALL (NEGATIVE); NITRITE, URINE AUTO NEGATIVE (NEGATIVE); PROTEIN, URINE AUTO NEGATIVE (NEGATIVE); RBC, URINE AUTO 0 /HPF (0-3); SPECIFIC GRAVITY URINE AUTO 1.018 (1.002-1.035); SQUAMOUS EPITHELIAL CELL UR AU 0 /HPF (0-6); UROBILINOGEN, URINE AUTO 0.2 mg/dL (0.0-2.0); WBC, URINE AUTO 2 /HPF (0-3)
[2023-01-30 16:42] LABS: ALBUMIN 3.6 G/DL (3.2-5.2); ALKALINE PHOSPHATASE 57 U/L (46-116); ALT/SGPT 18 U/L (7.0-40); AST/SGOT 21 U/L (<34); BILIRUBIN,TOTAL 0.4 MG/DL (0.3-1.2); BLOOD UREA NITROGEN 17 MG/DL (9-23); CALCIUM LEVEL 8.7 MG/DL (8.5-10.1); CARBON DIOXIDE LEVEL 27 MMOL/L (20-31); CHLORIDE LEVEL 110 MMOL/L (98-107); CREATININE FOR GFR 1.04 MG/DL (0.70-1.30); GLOMERULAR FILTRATION RATE > 60.0 (>60); GLUCOSE, FASTING 92 MG/DL (60-100); SODIUM LEVEL 141 MMOL/L (136-145); TOTAL PROTEIN 6.6 G/DL (5.7-8.2)
[2023-01-30 17:17] LABS: HEPATITIS C VIRUS ABY INDEX 0.06 INDEX (<0.8)
[2023-01-30 17:40] LABS: GC DNA AMPLIFICATION NEGATIVE (NEGATIVE)
[2023-02-01 18:09] LABS: % CD8 Pos Lymph 28.4 % (12.0-35.5); %CD4 Pos Lymphs 50.9 % (30.8-58.5); ABS Basophils 0.1 x10E3/uL (0.0-0.2); ABS Eosinophils 0.5 x10E3/uL (0.0-0.4); ABS Lymphs 1.8 x10E3/uL (0.7-3.1); ABS Monocytes 0.5 x10E3/uL (0.1-0.9); ABS Neutophils 8.6 x10E3/uL (1.4-7.0); Abs CD4 Helper 916 /uL (359-1519); Abs CD8 Suppres 511 /uL (109-897); CD4/CD8 Ratio 1.79 (0.92-3.72); Eosinophils 4 % (Not Estab.); HGB 13.7 g/dL (13.0-17.7); HIV-1 RNA PCR QUANT 2 LC550285 <20 copies/mL (.); Immature Grans 0 % (Not Estab.); Lymphocytes 16 % (Not Estab.); MCH 34.9 pg (26.6-33.0); MCHC 35.1 g/dL (31.5-35.7); MCV 100 fL (79-97); Monocytes 5 % (Not Estab.); Neutrophils 75 % (Not Estab.); Platelets 170 x10E3/uL (150-450); RBC 3.92 x10E6/uL (4.14-5.80); RDW 13.3 % (11.6-15.4); WBC 11.6 x10E3/uL (3.4-10.8)
== END ==
LOC: M PLALAB 13:47
PROVIDERS: ATTEND Internal Medicine Infectious Disease
DX: B20 Human immunodeficiency virus [HIV] disease (principal)

== ENCOUNTER 2023-03-16 08:03 | Emergency (ER) | payer MEDICAID ==
[~2023-03-16] VITALS: Ht 170.2 cm; Wt 70.2 kg
[2023-03-16] MEDS ORDERED: NS 1,000 ML IV ONE (10:15)
[2023-03-16 10:32] LABS: BASO # 0.1 10^3/uL (0.0-0.2); BASO % 0.6 % (0.0-1.0); EOS # 0.1 10^3/uL (0.0-0.5); EOS % 0.8 % (0.0-3.0); HEMATOCRIT 39.5 % (42.0-52.0); HEMOGLOBIN 13.8 g/dl (13.5-17.5); LYMPH # 1.5 10^3/uL (1.5-5.0); LYMPH % 17.5 % (24.0-44.0); MEAN CORPUSCULAR HEMOGLOBIN 33.7 pg (27.0-33.0); MEAN CORPUSCULAR HGB CONC 34.9 g/dl (32.0-36.5); MEAN CORPUSCULAR VOLUME 96.3 fl (80.0-96.0); MONO # 0.5 10^3/uL (0.0-0.8); MONO % 5.8 % (2.0-8.0); NEUTROPHILS # 6.5 10^3/uL (1.5-8.5); PLATELET COUNT, AUTOMATED 220 10^3/uL (150-450); WHITE BLOOD COUNT 8.6 10^3/uL (4.0-10.0)
[2023-03-16 11:04] LABS: BLOOD UREA NITROGEN 8 MG/DL (9-23); CARBON DIOXIDE LEVEL 26 MMOL/L (20-31); CHLORIDE LEVEL 110 MMOL/L (98-107); CREATININE FOR GFR 0.96 MG/DL (0.70-1.30); GLOMERULAR FILTRATION RATE > 60.0 (>60); GLUCOSE, FASTING 104 MG/DL (60-100); POTASSIUM SERUM 4.1 MMOL/L (3.5-5.1); SODIUM LEVEL 142 MMOL/L (136-145)
[2023-03-16 12:10] VITALS: BP 148/78; TEMP 98.4; O2SAT 100
== END 2023-03-16 12:17 | disposition home or self-care (01) ==
LOC: M ED 08:03
DX: R19.7 Diarrhea, unspecified (principal); F17.210 Nicotine dependence, cigarettes, uncomplicated; Z88.8 Allergy status to other drugs, medicaments and biological substances; Z79.1 Long term (current) use of non-steroidal anti-inflammatories (NSAID); Z79.899 Other long term (current) drug therapy

== ENCOUNTER → 2023-08-22 | Outpatient (CLI) | payer MEDICAID, OTHER ==
[2023-08-22 16:02] LABS: ALBUMIN 3.8 G/DL (3.2-5.2); ALKALINE PHOSPHATASE 53 U/L (46-116); ALT/SGPT 21 U/L (7.0-40); AST/SGOT 20 U/L (<34); BILIRUBIN,TOTAL 0.8 MG/DL (0.3-1.2); BLOOD UREA NITROGEN 10 MG/DL (9-23); CALCIUM LEVEL 9.4 MG/DL (8.5-10.1); CARBON DIOXIDE LEVEL 28 MMOL/L (20-31); CHLORIDE LEVEL 107 MMOL/L (98-107); CREATININE FOR GFR 1.03 MG/DL (0.70-1.30); GLOMERULAR FILTRATION RATE > 60.0 (>60); GLUCOSE, FASTING 99 MG/DL (60-100); POTASSIUM SERUM 3.8 MMOL/L (3.5-5.1); SODIUM LEVEL 139 MMOL/L (136-145); TOTAL PROTEIN 6.6 G/DL (5.7-8.2)
== END ==
LOC: M PLALAB 12:45
PROVIDERS: ATTEND Internal Medicine Infectious Disease
DX: B20 Human immunodeficiency virus [HIV] disease (principal)

== ENCOUNTER → 2024-11-26 | Outpatient (CLI) | payer MEDICAID, OTHER ==
[2024-11-26 16:28] LABS: ALT/SGPT 13 U/L (7.0-40); AST/SGOT 21 U/L (<34); CALCIUM LEVEL 8.9 MG/DL (8.5-10.1); CARBON DIOXIDE LEVEL 25 MMOL/L (20-31); CHLORIDE LEVEL 107 MMOL/L (98-107); CREATININE FOR GFR 1.20 MG/DL (0.70-1.30); GLOMERULAR FILTRATION RATE 81.4 (>60); POTASSIUM SERUM 3.8 MMOL/L (3.5-5.1); SODIUM LEVEL 142 MMOL/L (136-145)
== END ==
LOC: M PLALAB 13:58
PROVIDERS: ATTEND Internal Medicine Infectious Disease
DX: B20 Human immunodeficiency virus [HIV] disease (principal)

== ENCOUNTER → 2025-02-10 | Outpatient (CLI) | payer MEDICAID, OTHER ==
[~2025-02-10] MED LIST changes: -IBUP-1022 PO; +IBUP600T42 PO
[2025-02-10 14:08] LABS: ALT/SGPT 12 U/L (7.0-40); AST/SGOT 22 U/L (<34); CALCIUM LEVEL 9.6 MG/DL (8.5-10.1); CARBON DIOXIDE LEVEL 25 MMOL/L (20-31); CHLORIDE LEVEL 109 MMOL/L (98-107); CHOLESTEROL LEVEL 128 MG/DL (<200); CHOLESTEROL RISK RATIO 3.29 (<5); CREATININE FOR GFR 1.18 MG/DL (0.70-1.30); GLOMERULAR FILTRATION RATE 83.0 (>60); HEPATITIS B SURFACE ANTIBODY POSITIVE (POSITIVE); LDL CHOLESTEROL 78.8 MG/DL (<100); NON-HDL-C 89.2 MG/DL; POTASSIUM SERUM 4.4 MMOL/L (3.5-5.1); SODIUM LEVEL 144 MMOL/L (136-145); TRIGLYCERIDES LEVEL 52 MG/DL (<150)
[2025-02-12 17:37] LABS: % CD4 52 % (30-61); %CD8 25 % (12-42); ABSOLUTE CD4 CELLS 1262 cells/uL (490-1740); ABSOLUTE CD8 CELLS 610 cells/uL (180-1170); ABSOLUTE LYMPHOCYTES 2436 cells/uL (850-3900); CD4 CD8 RATIO 2.07 (0.86-5.00)
== END ==
LOC: M PLALAB 11:50
PROVIDERS: ATTEND Internal Medicine Infectious Disease
DX: Z11.3 Encounter for screening for infections with a predominantly sexual mode of transmission (principal); B20 Human immunodeficiency virus [HIV] disease; Z13.220 Encounter for screening for lipoid disorders